=== PATIENT | female | born 1955 | race Caucasian/White ===

== ENCOUNTER 2016-12-10 16:59 | Emergency (ER) | payer SELFPAY ==
[~2016-12-10] VITALS: Ht 157.5 cm; Wt 63.5 kg
[2016-12-10] MEDS ORDERED: ATEN50TA (18:03)
[2016-12-10] MEDS ORDERED: LOVA20TA2 (18:03)
--- NOTE | 2016-12-10 19:30 | ED Syncope ---
General Chief Complaint: Dizziness/Syncope Stated Complaint: BLACKED OUT Nursing Triage Note: States was sitting in car at 1530 and felt everything go black, denies blacking out. States she felt her p[alpate at that time. States she "feels funny" States she forgot to take bp meds this am History of Present Illness Time Seen by Provider: 19:15 Initial Comments Initial evaluation for near syncopal event. 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 She has had no further vision changes, no other neurological changes, denies headache or chest pain. She denies paresthesias in upper or lower extremities. He reports eating breakfast and lunch today. No changes in her appetite. She is uncertain if she took her atenolol this morning for her blood pressure. She does report yelling with some stressful events last evening, but she slept without problems. Timing/Prior Episodes: No Prior History Symptoms Prior to Episode: None Precipitating Factors: Emotional Stress Loss of Consciousness: No Loss of Consciousness Current Symptoms: Back to Normal Allergies and Home Medications Allergies Coded Allergies: No Known Drug Allergies (Unverified , 12/10/16) Home Medications Atenolol 50 Mg Tablet #30 (Reported) Lovastatin 20 Mg Tablet #30 (Reported) Constitutional: no symptoms reported see HPI EENTM: no symptoms reported see HPI Respiratory: no symptoms reported see HPI Cardiovascular: no symptoms reported see HPI Gastrointestinal: no symptoms reported see HPI Genitourinary: no symptoms reported see HPI Musculoskeletal: no symptoms reported see HPI Skin: no symptoms reported see HPI Psychiatric/Neurological: See HPI Anxiety (offered treatment for anxiety, patient declined.) All Other Systems Reviewed Negative Unless Noted: Yes Past Rfczwrw-Jyidcv-Cniriu Hx Patient Social History Alcohol Use: Denies Use Recreational Drug Use: No Smoking Status: Current Everyday Smoker Type Used: Cigarettes 2nd Hand Smoke Exposure: Yes Recent Foreign Travel: No Contact w/Someone Who Travel: No Recent Infectious Disease Expo: No Recent Hopitalizations: No Immunizations Up To Date Tetanus Booster (TDap): Less than 5yrs Seasonal Allergies Seasonal Allergies: No Surgeries HX Surgeries: Yes Surgeries: Section Respiratory Hx Respiratory Disorders: No Cardiovascular Hx Cardiac Disorders: Yes Cardiac Disorders: Hypertension, Palpitations Neurological Hx Neurological Disorders: No Reproductive System Hx Reproductive Disorders: No Genitourinary Hx Genitourinary Disorders: No Gastrointestinal Hx Gastrointestinal Disorders: No Musculoskeletal Hx Musculoskeletal Disorders: No Endocrine Hx Endocrine Disorders: No (borderline thyroid- no meds) HEENT HX ENT Disorders: No Cancer Hx Cancer: No Psychosocial Hx Psychiatric Problems: No Integumentary HX Skin/Integumentary Disorder: No Blood Transfusions Hx Blood Disorders: No Reviewed Nursing Assessment Reviewed/Agree w Nursing PMH: Yes Physical Exam Vital Signs Vital Sign - Last 12Hours 12/10/16 12/10/16 17:57 20:18 Temp 98.3 Pulse 109 Resp 18 B/P 175/88 Pulse Ox 100 O2 Delivery Room Air Capillary Refill : Less Than 3 Seconds General Appearance: No Apparent Distress WD/WN HEENT: PERRL/EOMI TMs Normal Normal ENT Inspection Pharynx Normal Neck: Full Range of Motion Normal Inspection Non Tender SuppleNo Thyromegaly Cardiovascular: Regular Rate, Rhythm No Murmur Normal Peripheral Pulses Respiratory: Chest Non Tender Lungs Clear Gastrointestinal: Normal Bowel Sounds Non Tender Soft Back: Normal Inspection No CVA Tenderness No Vertebral Tenderness Extremities: Normal Capillary Refill Normal Inspection Normal Range of Motion Non Tender No Calf Tenderness No Pedal Edema Neurologic/Psychiatric: Alert Oriented x3 No Motor/Sensory Deficits Normal 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 Norm as Tested Cranial Nerves: Normal Hearing, Normal Speech, PERRL Coordination/Gait: Normal Finger to Nose, Normal Gait, Negative Romberg's Sign Motor/Sensory: No Motor Deficit, No Sensory Deficit, No Pronator Drift, Negative Babinski's Sign Skin: Normal Color Warm/Dry Lymphatic: No Adenopathy Progress/Results/Core Measures Results/Orders Lab Results Laboratory Tests Test 12/10/16 19:10 12/10/16 19:30 Range/Units Urine Bacteria FEW H /HPF Urine Bilirubin NEGATIVE NEGATIVE Urine Casts NONE /LPF Urine Clarity SLIGHTLY CLOUDY Urine Color YELLOW Urine Crystals NONE /LPF Urine Culture Indicated NO Urine Glucose (UA) NEGATIVE NEGATIVE Urine Ketones NEGATIVE NEGATIVE Urine Leukocyte Esterase 1+ H NEGATIVE Urine Mucus SMALL H /LPF Urine Nitrite NEGATIVE NEGATIVE Urine Protein NEGATIVE NEGATIVE Urine RBC RARE /HPF Urine RBC (Auto) 2+ H NEGATIVE Urine Renal Epithelial Cells NONE /HPF Urine Specific [place] 1.020 1.016-1.022 Urine Squamous Epithelial Cells >50 H /HPF Urine Urobilinogen NORMAL NORMAL MG/DL Urine WBC 2-5 /HPF Urine pH 6 5-9 Alanine Aminotransferase (ALT/SGPT) 15 0-55 U/L Albumin 4.2 3.2-4.5 G/DL Alkaline Phosphatase 69 40-136 U/L Anion Gap 11 5-14 MMOL/L Aspartate Amino Transf (AST/SGOT) 20 5-34 U/L BUN/Creatinine Ratio 17 Basophils # (Auto) 0.0 0.0-0.1 10^3/uL Basophils (%) (Auto) 0 0-10 % Blood Urea Nitrogen 14 7-18 MG/DL Calcium Level 9.2 8.5-10.1 MG/DL Carbon Dioxide Level 22 21-32 MMOL/L Chloride Level 108 H 98-107 MMOL/L Creatinine 0.84 0.60-1.30 MG/DL Eosinophils # (Auto) 0.1 0.0-0.3 10^3/uL Eosinophils (%) (Auto) 1 0-10 % Estimat Glomerular Filtration Rate > 60 Free Thyroxine 0.86 0.70-1.48 NG/DL Glucose Level 98 70-105 MG/DL Hematocrit 40 35-52 % Hemoglobin 13.5 11.5-16.0 G/DL Lymphocytes # (Auto) 1.9 1.0-4.0 X 10^3 Lymphocytes (%) (Auto) 18 12-44 % Mean Corpuscular Hemoglobin 30 25-34 PG Mean Corpuscular Hemoglobin Concent 33 32-36 G/DL Mean Corpuscular Volume 89 80-99 FL Mean Platelet Volume 10.8 H 7.4-10.4 FL Monocytes # (Auto) 0.7 0.0-1.0 X 10^3 Monocytes (%) (Auto) 7 0-12 % Neutrophils # (Auto) 7.7 1.8-7.8 X 10^3 Neutrophils (%) (Auto) 74 42-75 % Platelet Count 239 130-400 10^3/uL Potassium Level 3.8 3.6-5.0 MMOL/L Red Blood Count 4.53 4.35-5.85 10^6/uL Red Cell Distribution Width 13.3 10.0-14.5 % Sodium Level 141 135-145 MMOL/L Thyroid Stimulating Hormone (TSH) 4.87 0.35-4.94 UIU/ML Total Bilirubin 0.2 0.1-1.0 MG/DL Total Protein 7.1 6.4-8.2 G/DL White Blood Count 10.4 4.3-11.0 10^3/uL My Orders Orders-NADIA FOX Cbc With Automated Diff (12/10/16 19:23) Comprehensive Metabolic Panel (12/10/16 19:23) Ua Culture If Indicated (12/10/16 19:23) Saline Lock/Iv-Start (12/10/16 19:23) Thyroid Stimulating Hormone (12/10/16 20:38) Free T4 (Free Thyroxine) (12/10/16 20:38) Ekg Tracing (12/10/16 20:54) Vital Signs/I&O Vital Sign - Last 12Hours 12/10/16 12/10/16 12/10/16 17:57 20:18 20:50 Temp 98.3 98.3 98.3 Pulse 109 74 76 Resp 18 18 20 B/P 175/88 144/82 Pulse Ox 100 96 98 O2 Delivery Room Air Blood Pressure Mean: 117 Progress Note : Time: 19:15 Progress Note Initial evaluation completed. Recommended EKG, and lab workup. 2029 EKG and labs all essentially normal. Patient reports less anxiety. Taking by mouth fluids. We also checked her thyroid, as she has been told in the past that she was borderline hyperthyroid. Both her TSH and T4 were normal. 0 blood pressure 140s/80s. Discussed discharge plans. He verbalized understanding follow-up with Dr. Shaw. She has not seen an spinner iron for several years, will schedule an appointment. ECG Initial ECG Impression Date: Dec 10, 2016 Initial ECG Impression Time: 19:16 Initial ECG Rate: 101 Initial ECG Rhythm: S.Tach Initial ECG Intervals: Normal Initial ECG Intervals PA 124; QRSD 82; QT 352, QTc 457 Hamilton P 64; QRS 13; T 51 Initial ECG Impression: Normal Initial ECG Comparisson: No Previous ECG Available Comment Reviewed with Dr. Early, agreed with interpretation. Departure Impression Impression: Primary Impression: Syncope, near Disposition: 01 HOME, SELF-CARE Condition: Improved Departure-Patient Inst. Decision time for Depature: 20:30 Referrals: ANTONI SHAW MD (PCP/Family) Primary Care Physician Patient Instructions: Syncope (Fainting) (DC) Add. Discharge Instructions: All discharge instructions reviewed with patient and/or family. Voiced understanding. Follow-up with Dr. Shaw next week. Take blood pressure medicine daily as prescribed Increase fluid intake. Return to emergency room for any changes in neurological status, headache vision changes or new symptoms. Copy Copies To 1: ANTONI SHAW MD, AMY ARNP Dec 10, 2016 19:30
[2016-12-10 19:39] LABS: BASOPHILS % (AUTO) 0 % (0-10); EOSINOPHILS # (AUTO) 0.1 10^3/uL (0.0-0.3); EOSINOPHILS % (AUTO) 1 % (0-10); LYMPHOCYTES # (AUTO) 1.9 X 10^3 (1.0-4.0); LYMPHOCYTES % (AUTO) 18 % (12-44); MEAN CORPUSCULAR HEMOGLOBIN 30 PG (25-34); MEAN CORPUSCULAR HGB CONC 33 G/DL (32-36); MEAN CORPUSCULAR VOLUME 89 FL (80-99); MEAN PLATELET VOLUME 10.8 FL (7.4-10.4); MONOCYTES # (AUTO) 0.7 X 10^3 (0.0-1.0); MONOCYTES % (AUTO) 7 % (0-12); NEUTROPHILS # (AUTO) 7.7 X 10^3 (1.8-7.8); NEUTROPHILS % (AUTO) 74 % (42-75); PLATELET COUNT 239 10^3/uL (130-400); RED BLOOD COUNT 4.53 10^6/uL (4.35-5.85); RED CELL DISTRIBUTION WIDTH 13.3 % (10.0-14.5); WHITE BLOOD COUNT 10.4 10^3/uL (4.3-11.0)
[2016-12-10 20:00] LABS: ALANINE AMINOTRANSFERASE 15 U/L (0-55); ALBUMIN 4.2 G/DL (3.2-4.5); ANION GAP 11 MMOL/L (5-14); ASPARTATE AMINO TRANSFERASE 20 U/L (5-34); BILIRUBIN,TOTAL 0.2 MG/DL (0.1-1.0); BLOOD UREA NITROGEN 14 MG/DL (7-18); BUN/CREATININE RATIO 17; CALCIUM 9.2 MG/DL (8.5-10.1); CARBON DIOXIDE 22 MMOL/L (21-32); CHLORIDE 108 MMOL/L (98-107); CREATININE SERUM 0.84 MG/DL (0.60-1.30); GFR ESTIMATED > 60; GLUCOSE 98 MG/DL (70-105); POTASSIUM 3.8 MMOL/L (3.6-5.0); SODIUM 141 MMOL/L (135-145); TOTAL PROTEIN 7.1 G/DL (6.4-8.2)
[2016-12-10 20:10] LABS: BILIRUBIN,URINE NEGATIVE (NEGATIVE); KETONES,URINE NEGATIVE (NEGATIVE); LEUKOCYTE ESTERASE ,URINE 1+ (NEGATIVE); NITRITE,URINE NEGATIVE (NEGATIVE); PH,URINE 6 (5-9); PROTEIN,URINE NEGATIVE (NEGATIVE); UROBILINOGEN,URINE NORMAL (NORMAL)
[2016-12-10 20:12] LABS: SQUAMOUS EPITHELIAL CELL,UR >50 /HPF
[2016-12-10 20:18] VITALS: BP 144/82
[2016-12-10 20:50] VITALS: BP 140/84
[2016-12-10 21:39] LABS: THYROID STIMULATING HORMONE 4.87 UIU/ML (0.35-4.94)
== END 2016-12-10 20:50 | disposition home or self-care (01) ==
LOC: EDUNIT# 16:59 → ER 17:02
DX: R55 Syncope and collapse (principal); I10 Essential (primary) hypertension; F17.210 Nicotine dependence, cigarettes, uncomplicated; Z79.899 Other long term (current) drug therapy
CPT/HCPCS: 36415; 80053; 81000; 84439; 84443; 85025; 93005

== ENCOUNTER 2019-11-05 05:41 | Outpatient (CLI) | payer BC ==
[~2019-11-05] VITALS: Ht 157 cm; Wt 63.0 kg
[~2019-11-05 05:41] MED LIST: ATEN50TA; LOVA20TA2
[2019-11-05] MEDS ORDERED: AMLO10TA7 PO (10:54)
[2019-11-05] MEDS ORDERED: ATEN50TA PO (10:54)
[2019-11-05] MEDS ORDERED: LOVA20TA2 PO (10:54)
== END 2019-11-05 13:12 | disposition home or self-care (01) ==
LOC: PREOP 05:41
PROVIDERS: ATTEND Surgery
DX: Z01.818 Encounter for other preprocedural examination (principal)

== ENCOUNTER → 2019-12-19 | Outpatient (CLI) | payer BC ==
[~2019-12-19] MED LIST changes: +AMLO10TA7 PO; +ATEN50TA PO; +HOLD METFORMIN - RECEIVED CONTRAST 20 ML VIAL IV SCH; +IOHEXOL 350 MG/ML 100 ML (OMNIPAQUE 350) VIAL IV ONE; +LOVA20TA2 PO; +NS 100 ML (IVPB) BAG IV ONE
[2019-12-19 08:53] LABS: HEMOGLOBIN 14.5 G/DL (11.5-16.0); MEAN PLATELET VOLUME 10.7 FL (7.4-10.4); RED CELL DISTRIBUTION WIDTH 13.8 % (10.0-14.5); WHITE BLOOD COUNT 8.1 10^3/uL (4.3-11.0)
[2019-12-19 09:14] LABS: ALANINE AMINOTRANSFERASE 14 U/L (0-55); ALBUMIN 4.3 GM/DL (3.2-4.5); ALKALINE PHOSPHATASE 68 U/L (40-136); BILIRUBIN,TOTAL 0.3 MG/DL (0.1-1.0); BUN/CREATININE RATIO 14; CALCIUM 9.4 MG/DL (8.5-10.1); CARBON DIOXIDE 24 MMOL/L (21-32); CHLORIDE 107 MMOL/L (98-107); CREATININE SERUM 0.87 MG/DL (0.60-1.30); GFR ESTIMATED > 60; GLUCOSE 92 MG/DL (70-105); POTASSIUM 4.3 MMOL/L (3.6-5.0); SODIUM 141 MMOL/L (135-145); TOTAL PROTEIN 7.5 GM/DL (6.4-8.2)
--- NOTE | 2019-12-19 10:21 | Diagnostic Imaging Report ---
PROCEDURE: CT abdomen and pelvis with contrast. TECHNIQUE: Multiple contiguous axial images were obtained through the abdomen and pelvis after administration of intravenous contrast. Auto Exposure Controls were utilized during the CT exam to meet ALARA standards for radiation dose reduction. INDICATION: Intermittent left lower quadrant pain symptoms began in August. No priors for comparison. FINDINGS: No abdominal wall defect, hernia or fluid collection. There is no bowel, biliary or urinary tract obstruction. Liver, gallbladder, bile ducts, spleen, adrenals and pancreas unremarkable. The unobstructed kidneys nonfocal and nonacute. The atherosclerotic aortoiliac vessels are patent and nonaneurysmal. There were no findings of end organ ischemia. There is no evidence for diverticulitis. The air-containing appendix well visualized and normal. There is no ascites, abscess, hematoma or acute fluid collection. Uterus, adnexa and urinary bladder unremarkable. No focal inflammatory process. Small hiatal hernia noted. IMPRESSION: Unremarkable abdominal pelvic CT. In particular, no acute finding or explanation to the left lower quadrant pain. Dictated by: Dictated on workstation # [id number]
== END ==
LOC: RAD 08:36
PROVIDERS: ATTEND Surgery
DX: R10.32 Left lower quadrant pain (principal)
CPT/HCPCS: 36415; 74177; 80053; 85027

== ENCOUNTER 2020-05-20 09:58 | Emergency (ER) | payer BC ==
[~2020-05-20 09:58] MED LIST changes: -HOLD METFORMIN - RECEIVED CONTRAST 20 ML VIAL IV SCH; -IOHEXOL 350 MG/ML 100 ML (OMNIPAQUE 350) VIAL IV ONE; -NS 100 ML (IVPB) BAG IV ONE
--- NOTE | 2020-05-20 10:00 | NUR ---
WENT TO GET PT TO TAKE TO COVID ED. PT HAVING CHEST PAIN. PT STATES WILL NOT GO OVER TO COVID AREA, EXPLAINED TO PT THAT ALL CHEST PAINS ARE CONSIDERED PUI. PT WOULD NOT LET THIS RN EXPLAIN CARE OF CHEST PAIN. PT STAYED 20+ FT AWAY FROM RN DURING ENCOUNTER. WHEN WALKING AWAY PT STATES IF I AM HAVING A HEART ATTACK I WILL BRIAN THIS PLACE. PT ANGRY. RN ATTEMPTED TO EDUCATED PT AGAIN. PT WALKED OUT TO VEHICLE W SPOUSE AND LEFT
--- OUTSIDE RECORDS SUMMARY | 2020-05-20 10:46 | XMS REPORT ---
Author Author [address]. 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 Address [address] [address] Care Team Providers Care Chemical Analyst Name Role Phone ANTONI SHAW Unavailable ANTONI SHAW Unavailable ANTONI SHAW Unavailable ANTONI SHAW Unavailable ANTONI SHAW Unavailable ANTONI SHAW Unavailable JEFFERSON BERRY MD Unavailable Unavailable NADIA FOX Unavailable Unavailable ANTONI SHAW Unavailable Unavailable FLORESITA CUNNINGHAM DO Unavailable Unavailable ANTONI SHAW PCP JEFFERSON BERRY MD Unavailable Unavailable Unavailable Unavailable Unavailable Unavailable Unavailable Unavailable Unavailable Unavailable Allergies The data below is from unstructured sources Unknown AllergiesNo known allergies.No known allergies. No Known Allergies No Known Allergies No Information No Information No Known Allergies No Known Allergies No Known Allergies No Known AllergiesNo known allergies.No known allergies.No known allergies.No known allergies. Encounters Encounter Date Encounter Type Encounter Diagnosis Care Provider Facility Start: Emergency department JEFFERSON BERYR MD V Via 05-20-2020 patient visit [facility] Start: Patient encounter FLORESITA CUNNINGHAM DO [facility] Via 12-19-2019 procedure [facility] Start: Admission to same day ANTONI Hernandez on Via 11-12-2019 surgery center Work Phone: [place] [phone] End: 11-12-2019 Start: Patient encounter FLORESITA CUNNINGHAM DO [facility]2019 procedure [facility] ([id number]) End: 11-12-2019 Start: Patient encounter ANTONI Daniels V ia 11-05-2019 procedure Work Phone: [place] [phone] End: 11-05-2019 Start: Patient encounter FLORESITA CUNNINGHAM [facility] Via [facility] 11-05-2019 procedure [facility] ([id number]) End: 11-05-2019 Start: Patient encounter NA NA [facility]2019 procedure [facility] ([id number]) Start: Patient encounter ANTONI SHAW [facility] 06-17-2019 procedure [facility] ([id number]) Start: Patient encounter ANTONI SHAW [facility] 11-27-2018 procedure [facility] ([id number]) Start: [facility] Essential (primary) ANTONI AUGUSTINE RTER [facility] 06-25-2018 hypertension Start: [facility] Essential (primary) ANTONI PEÑAMary RTER [facility] 05-29-2018 hypertension Start: Patient encounter NA NA Not [facility] ([id number]) 05-29-2018 procedure Start: Patient encounter 11-07-2017 procedure Start: Patient encounter NADIA FOX Not [facility] ([id number]) 12-10-2016 procedure Encounter for other FLORESITA CUNNINGHAM [facility] Via [facility] examination ([id number]) Medical Equipment The data below is from unstructured sourcesNo Medical Equipment Information availableNo Medical Equipment Information availableNo Medical Equipment Information available Goals Date Patient Goal Desired Activity/St ate Immunizations The data below is from unstructured sources Immunization Event Date Not Given Reason Dose Number Safety Tech Lot Number Vaccine Information Statement (VIS) Deta il Interventions No Information Medications Medication Drug Dates Sig Sig (Original) Class(es) (Normalized) amLODIPine 5 mg oral Dihydropyr Start: take 1 tablet Aml odipine Besylate 5 mg Orally Once a tablet idine 05-29-2018 by mouth once day 1 tablet 24h Apr, 30 day(s) (3 sources) Calcium daily Active Channel Yovany Amlodipine Besylate Active 10 ORAL Daily Payers Date Payer Normalized Payer [id number] Plan of Treatment Date Care Activity Detail Author Patient Education [place] [facility] ([id number]) Problems Active Problems Problem Problem Date Last Documented Episodic/Chr Provider Classificati Recorded Date onic on Anxiety Anxiety disorder, unspecified Chronic FLORESITA CUNNINGHAM disorders DO (3 sources) Diverticulos Diverticulosis of large intestine Chronic FLORESITA CUNNINGHAM is and without perforation or abscess DO diverticulit without bleeding is (3 sources) Past or Other Problems Problem Problem Date Last Documented Episodic/Chr Provider Classificati Recorded Date onic on Abdominal Left lower quadrant pain Episodic SENG TT CUNNINGHAM pain DO (2 sources) Other Other group home (current) drug Episodic NADIA FOX aftercare therapy (4 sources) Other and Benign neoplasm of sigmoid colon Episodic FLORESITA CUNNINGHAM unspecified DO benign neoplasm (3 sources) Other and Benign neoplasm of transverse colon Episodic FLORESITA CUNNINGHAM unspecified DO benign neoplasm (3 sources) Other and Polyp of colon Episodic FLORESITA CUNNINGHAM unspecified DO benign neoplasm (3 sources) Residual Family history of ischemic heart Episodic FLORESITA CUNNINGHAM codes; disease and other diseases of the D O unclassified circulatory system (3 sources) Residual Family history of malignant Episodic FLORESITA CUNNINGHAM codes; neoplasm, unspecified DO unclassified (3 sources) Procedures The data below is from unstructured sources Procedure Status Date Provider(s) Tracing only of electrocardiogram Active 12/10/16 NADIA FOXP No procedure information available. Results Test Name Value Interpreta Reference Facilit Date tion Range y Time not yet categorized on 2019-10-04 BLO 1+ Invalid Communi Interpreta ty tion Code [facility] (10926) KET 09/18~clear~yellow~none~neg~neg~neg Invalid Communi Interpreta ty tion Code [facility] (31170) RYAN neg~1+ Invalid Communi Interpreta ty tion Code [facility] (16012) Lot # [id number] Invalid Communi Interpreta ty tion Code [facility] (32989) SG 1.020 Invalid Communi Interpreta ty tion Code [facility] (55469) URO .2 Invalid Communi Interpreta ty tion Code [facility] (82640) laboratory on 2019-10-04 Bacteria identified SEE NOTE Invalid Communi Cx Nom (U) Interpreta ty tion Code [facility] (76309) pH (Bld) 6.0 [pH] Invalid Communi Interpreta ty tion Code [facility] (06311) Protein (U) Negative Invalid Communi [Mass/Vol] Interpreta ty [facility] (00054) laboratory on 2017-11-07 Albumin [Mass/Vol] 4.4 g/dL Normal 3.6-5.1 Not g/dL [facility] (57529) Albumin/Globulin 1.6 {ratio} Normal 1.0-2.5 Not [Mass ratio] (calc) [facility] (36075) ALP [Catalytic 62 U/L Normal 33-130 U/L Not activity/Vol] [facility] (08888) ALT [Catalytic 13 U/L Normal 6-29 U/L Not activity/Vol] [facility] (98279) AST [Catalytic 18 U/L Normal 10-35 U/L Not activity/Vol] [facility] (27726) Bilirubin [Mass/Vol] 0.4 mg/dL Normal 0.2-1.2 Not mg/dL [facility] (32248) Calcium [Mass/Vol] 9.8 mg/dL Normal 8.6-10.4 Not mg/dL [facility] (31655) Chloride [Moles/Vol] 106 mmol/L Normal 98-110 Not mmol/L [facility] (49263) Cholesterol 185 mg/dL Normal <200 mg/dL [Mass/Vol] Cholesterol in HDL 63 mg/dL Normal >50 mg/dL [Mass/Vol] Cholesterol in LDL 94 mg/dL Normal mg/dL [Mass/Vol] (calc) Cholesterol non HDL 122 mg/dL Normal <130 mg/dL [Mass/Vol] (calc) Cholesterol.total/Ch 2.9 {ratio} Normal <5.0 olesterol in HDL (calc) [Mass ratio] CO2 [Moles/Vol] 28 mmol/L Normal 20-31 Not mmol/L [facility] (77320) Creatinine 0.80 mg/dL Normal 0.50-0.99 Not [Mass/Vol] mg/dL [facility] (63683) GFR/1.73 sq 93 mL/min/{1.73_m2} Normal > OR = 60 Not M.predicted among mL/min/1.7 Avail[facility] blacks MDRD 3m2 le (S/P/Bld) [Vol (00837) rate/Area] GFR/1.73 sq 80 mL/min/{1.73_m2} Normal > OR = 60 Not M.predicted MDRD mL/min/1.7 Availab (S/P/Bld) [Vol 3m2 le rate/Area] (63956) Globulin (S) 2.7 g/dL Normal 1.9-3.7 Not [Mass/Vol] g/dL Avail[facility] (calc) le (56206) Glucose [Mass/Vol] 93 mg/dL Normal 65-99 Not mg/dL [facility] (33319) Potassium 4.7 mmol/L Normal 3.5-5.3 Not [Moles/Vol] mmol/L [facility] (87675) Protein [Mass/Vol] 7.1 g/dL Normal 6.1-8.1 Not g/dL [facility] (13477) Sodium [Moles/Vol] 140 mmol/L Normal 135-146 Not mmol/L [facility] (04008) Triglyceride 190 mg/dL High <150 mg/dL [Mass/Vol] Urea nitrogen 16 mg/dL Normal 7-25 mg/dL Not [Mass/Vol] [facility] (81883) Urea NOT APPLICABLE Invalid 6-22 Not nitrogen/Creatinine Interpreta (calc) Availab [Mass ratio] tion Code le (96933) laboratory on 2016-12-15 Cholesterol 179 mg/dL Invalid 100-199 Not 2 [Mass/Vol] Interpreta mg/dL Availab 017 tion Code le 09:08-0 (87190) 500 Cholesterol in HDL 59 mg/dL Invalid >39 mg/dL Not 02 6-2 [Mass/Vol] Interpreta Availab 017 tion Code le 09:08-0 (56451) 500 Cholesterol in LDL 96 mg/dL Invalid 0-99 mg/dL Not 2 [Mass/Vol] Interpreta Availab 017 tion Code le 09:08-0 (60649) 500 Cholesterol in VLDL 24 mg/dL Invalid 5-40 mg/dL Not -2 [Mass/Vol] Interpreta Availab 017 tion Code le 09:08-0 (61495) 500 Triglyceride 120 mg/dL Invalid 0-149 Not 2 [Mass/Vol] Interpreta mg/dL Availab 017 tion Code le 09:08-0 (36000) 500 Social History Date Type Detail Facility Start: Tobacco smoking status NHIS Smokes tobacco stacie ly [place] [facility] 11-05-2019 (finding) [facility] ([id number]) Start: Denies Use [place] [facility] 11-05-2019 [facility] ([id number]) Start: Current Everyday Smoker [place] [facility] 11-05-2019 [facility] ([id number]) Start: Cigarettes [place] [facility] 11-05-2019 [facility] (36654) Start: No [place] [facility] 11-05-2019 [facility] ([id number]) Start: Sex Assigned At Female [facility] 1955 [facility] ([id number]) Vital Signs Date Time Vital Sign Value Performing Clinician Facil it 05-29-2018 Body height 157.48 cm [facility] 12:40-0400 Other Phone: [facility] [place] ([id number]) 05-29-2018 Body mass index 26.37 kg/m2 [facility] 12:40-0400 (BMI) [Ratio] Other Phone: [facility] [place] ([id number]) 05-29-2018 Body temperature 98.9 [degF] [facility] 12:40-0400 Other Phone: [facility] [place] ([id number]) 05-29-2018 Body weight 65.41 kg [facility] 12:40-0400 Other Phone: [facility] [place] ([id number]) Functional Status The data below is from unstructured sources Query Response Date Williams rded Patient Orientation Person Place Time Situation Normal For Age December 10, 2016 7:20pm Comprehension Ability Understands Co ncepts December 10, 2016 7:20pm No Functional Status information available Mental Status The data below is from unstructured sourcesNo Mental Status Information AvailableNo Mental Status Information AvailableNo Mental Status Information Available Hospital Discharge instructions 2020-06-03 Note Date & Note Facility Type 06-03-2020 Additional Instructions [place] [facility] Patient Instructions [facility] Discharge Physician Instructions ([id number]) instructions Plan of Care/Instructions/F U: 2 weeks cunningham Activity as Tolerated: Yes Discharge Diet: Regular Diet (high fibe r) Care Plan Patient Instructions:: 2 weeks cunningham Evaluation note Note Date & Note Facility Type Evaluation No Assessments Information Available [facility] Via note [facility] ([id number]) Advance Directives Directive Response Recor ded Date/Time Advance Directives No 5:57pm Resuscitation Status Full Code 12/10/16 5:57pm Advance Directive Response Recorded Date/Time Advance Directives No Renzo nudunreith 2019 10:52am Health Care Power of Security Systems Sales Representative No November 05, 2019 10:52am Resuscitation Status Full Code November 05, 2019 10:52am Advance Directive Response Recorded Date/Time Advance Directives No Renzo nuary 2019 7:53am Health Care Power of Security Systems Sales Representative No November 12, 2019 7:53am Organ Donor Yes November 12, 2019 7:53am Resuscitation Status Full Code November 12, 2019 7:53am Discharge Instructions No hospital discharge instructions. Additional Source Comments This clinical document has been generated using [employer] software that has been certified by the Office of the National Coordinator for Health Information Technology (ONC 15.99.04.3023.Diam.31.00.0.297262) and the National Committee for Restaurant Operations Manager (NCQA, as an eMeasure certified technology). FOR RECORDS PERTAINING TO PATIENTS WHO ARE OR HAVE BEEN ENROLLED IN A CHEMICAL D EPENDENCY/SUBSTANCE ABUSE PROGRAM, SOME INFORMATION MAY BE OMITTED. This clinica l summary was aggregated from multiple sources. Caution should be exercised in using it in the provision of clinical care. This summary normalizes information from multiple sources, and as a consequence, information in this document may ma terially change the coding, format and clinical context of patient data. In hay tion, data may be omitted in some cases. CLINICAL DECISIONS SHOULD BE BASED ON T HE PRIMARY CLINICAL RECORDS. [employer] provides no warranty or guara ntee of the accuracy or completeness of information in this document.The followi ng information is based on time limited clinical information UNRECOGNIZED CONTENT PROVIDED BELOW FOR UNRECOGNIZED SECTION REASON FOR VISIT Blood Pressure concern Pt states that since yesterday her b/p was elevated JNapi CHRISTIE soto
--- OUTSIDE RECORDS SUMMARY | 2020-05-20 10:46 | XMS REPORT | Continuity of Care Document ---
Demographics Preferred Language Unknown Marital Status Unknown Evangelical Affiliation Unknown Race Unknown Ethnic Group Unknown Author Organization Unknown Address Unknown Phone Unavailable Allergies There is no data. Medications There is no data. Problems There is no data. Procedures There is no data. Results Test Result Range Lipid Panel - 12/14/16 08:27 Cholesterol, Total 179 mg/dL 100-199 Triglycerides 120 mg/dL 0-149 HDL Cholesterol 59 mg/dL >39 VLDL Cholesterol Kenji 24 mg/dL 5-40 LDL Cholesterol Calc 96 mg/dL 0-99 LIPID PANEL - 11/07/17 09:44 CHOLESTEROL, TOTAL 185 mg/dL <200 HDL CHOLESTEROL 63 mg/dL >50 TRIGLYCERIDES 190 mg/dL <150 LDL-CHOLESTEROL 94 mg/dL (calc) NRG CHOL/HDLC RATIO 2.9 (calc) <5.0 NON HDL CHOLESTEROL 122 mg/dL (calc) <13 0 CULTURE, URINE - 10/04/19 11:52 CULTURE, URINE, ROUTINE SEE NOTE NRG Encounters ACCT No. Visit Date/Time Discharge Status Pt. Type Provider Facility Loc./Unit Complaint [id number] 12/15/2016 08:40:00 Document Registration [id number] 06/17/2019 11:00:00 06/17/2019 23:59:5 9 CLS Out[facility] [id number] 10/04/2019 11:40:00 Document Registration [id number] 11/07/2017 09:20:00 Document Registration
== END 2020-05-20 10:00 | disposition left against medical advice (07) ==
LOC: EDUNIT# 09:58 → ER 09:59
DX: R07.9 Chest pain, unspecified (principal)

== ENCOUNTER 2020-05-20 10:24 | Emergency (ER) | payer BC ==
[~2020-05-20] VITALS: Ht 157 cm; Wt 63.0 kg
[2020-05-20] MEDS ORDERED: ASPIRIN 81 MG CHEW (CHILDREN'S ASA) PO ONE (11:00)
[2020-05-20 11:07] LABS: BASOPHILS # (AUTO) 0.1 10^3/uL (0.0-0.1); BASOPHILS % (AUTO) 1 % (0-10); EOSINOPHILS # (AUTO) 0.4 10^3/uL (0.0-0.3); EOSINOPHILS % (AUTO) 5 % (0-10); HEMATOCRIT 42 % (35-52); HEMOGLOBIN 14.1 G/DL (11.5-16.0); LYMPHOCYTES # (AUTO) 2.1 X 10^3 (1.0-4.0); LYMPHOCYTES % (AUTO) 26 % (12-44); MEAN CORPUSCULAR HEMOGLOBIN 31 PG (25-34); MEAN CORPUSCULAR HGB CONC 34 G/DL (32-36); MEAN CORPUSCULAR VOLUME 91 FL (80-99); MEAN PLATELET VOLUME 10.9 FL (7.4-10.4); MONOCYTES # (AUTO) 0.6 X 10^3 (0.0-1.0); MONOCYTES % (AUTO) 8 % (0-12); NEUTROPHILS # (AUTO) 4.8 X 10^3 (1.8-7.8); NEUTROPHILS % (AUTO) 60 % (42-75); PLATELET COUNT 263 10^3/uL (130-400); RED CELL DISTRIBUTION WIDTH 13.6 % (10.0-14.5); WHITE BLOOD COUNT 7.9 10^3/uL (4.3-11.0)
--- NOTE | 2020-05-20 11:15 | ED Chest Pain ---
General Chief Complaint: Chest Pain Stated Complaint: CHEST PAIN Source: patient Exam Limitations: no limitations History of Present Illness Date Seen by Provider: May 20, 2020 Time Seen by Provider: 10:22 Initial Comments Here with report of chest pain that she states has been intermittent over the last month but worse this morning. She states she got up and rolled over and felt pain in her back on the left side and that radiated to her chest. She has persistently intermittent chest pain to day that she describes as an ache. Denies nausea, vomiting, sweating or breathing problems. She has not had no cardiac workup. Does smoke but denies alcohol or drugs. Does have significant family history with mother who had heart attack and of a stroke and multiple family members on her mother's side that have had heart attacks or strokes. Patient does have high blood pressure and anxiety. She presented earlier for the chest pain but left due to concerns for coronavirus. Ultimately she returned after further consideration and encouragement from family and primary care office. Patient reassured about precautions. Patient stays at home and has not left the house since December. She is very concerned and cautious about COVID-19. 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 No symptoms in him or her. She denies sore throat, runny nose, cough, breathing problems or other concerns other than the chest pain. Timing/Duration: 4-6 hours, intermittent Severity/Quality: moderate, aching, pressure Location: central, back Radiation: back Activities at Onset: none Prior CP/Workup: no prior cardiac workup Modifying Factors: improves with rest ASA po ASPHALT DAUBER: Yes (81 mg) NTG SL ASPHALT DAUBER: No Associated Symptoms: No abdominal pain; back pain; No diaphoresis, No dizziness, No fever/chills, No nausea/vomiting, No shortness of breath, No weakness Allergies and Home Medications Allergies Coded Allergies: No Known Drug Allergies (Unverified , 11/05/19) Home Medications Amlodipine Besylate 10 Mg Tablet, 10 MG PO DAILY, (Reported) Atenolol 50 Mg Tablet, 50 MG PO DAILY, (Reported) Lovastatin 20 Mg Tablet, 20 MG PO HS, (Reported) Patient Home Medication List Home Medication List Reviewed: Yes Review of Systems Review of Systems Constitutional: see HPI; No chills, No fever EENTM: No Symptoms Reported, See HPI Respiratory: No Symptoms Reported, See HPI Cardiovascular: Chest Pain, Edema, Lightheadedness Gastrointestinal: Denies Abdominal Pain, Denies Diarrhea, Denies Nausea, Denies Vomiting Genitourinary: No Symptoms Reported Musculoskeletal: back pain, muscle pain; No neck pain Skin: no symptoms reported Psychiatric/Neurological: No Symptoms Reported All Other Systems Reviewed Negative Unless Noted: Yes Past Hioxjqc-[place]-Mmwaod Hx Past Med/Social Hx: Reviewed Nursing Past Med/Soc Hx Patient Social History Alcohol Use: Denies Use Recreational Drug Use: No Smoking Status: Current Everyday Smoker Type Used: Cigarettes 2nd Hand Smoke Exposure: Yes Recent Hopitalizations: No Immunizations Up To Date Tetanus Booster (TDap): Less than 5yrs Seasonal Allergies Seasonal Allergies: No Past Medical History Surgeries: Yes Section Respiratory: No Cardiac: Yes High Cholesterol, Hypertension, Palpitations Neurological: No Reproductive Disorders: No Sexually Transmitted Disease: No HIV/AIDS: No Genitourinary: No Gastrointestinal: No Musculoskeletal: No Endocrine: Yes (borderline thyroid- no meds) HEENT: No (GLASSES) Loss of Vision: Denies Hearing Impairment: Denies Cancer: No Psychosocial: No Integumentary: No Blood Disorders: No Adverse Reaction/Blood Tranf: No (N/A) Family Medical History Reviewed Nursing Family Hx No Pertinent Family Hx Physical Exam Vital Signs Vital Signs - First Documented 05/20/20 05/20/20 10:30 11:29 Temp 37.2 Pulse 81 Resp 18 B/P (MAP) 144/87 (106) Pulse Ox 97 O2 Delivery Room Air Capillary Refill : Height, Weight, BMI Height: 5'2" Weight: 140lbs. oz. 63.180686hl; 25.55 BMI Method:Stated General Appearance: WD/WN, Anxious HEENT: PERRL/EOMI, Pharynx Normal Neck: Non Tender, Supple Respiratory: Lungs Clear, Normal Breath Sounds Cardiovascular: Regular Rate, Rhythm, No Murmur Gastrointestinal: Non Tender, Soft Extremity: Normal Range of Motion, Non Tender Neurologic/Psychiatric: Alert, Oriented x3 Skin: Normal Color, Warm/Dry Progress/Results/Core Measures Results/Orders Lab Results Laboratory Tests Test 05/20/20 10:35 05/20/20 12:35 Range/Units White Blood Count 7.9 4.3-11.0 10^3/uL Red Blood Count 4.62 4.35-5.85 10^6/uL Hemoglobin 14.1 11.5-16.0 G/DL Hematocrit 42 35-52 % Mean Corpuscular Volume 91 80-99 FL Mean Corpuscular Hemoglobin 31 25-34 PG Mean Corpuscular Hemoglobin Concent 34 32-36 G/DL Red Cell Distribution Width 13.6 10.0-14.5 % Platelet Count 263 130-400 10^3/uL Mean Platelet Volume 10.9 H 7.4-10.4 FL Neutrophils (%) (Auto) 60 42-75 % Lymphocytes (%) (Auto) 26 12-44 % Monocytes (%) (Auto) 8 0-12 % Eosinophils (%) (Auto) 5 0-10 % Basophils (%) (Auto) 1 0-10 % Neutrophils # (Auto) 4.8 1.8-7.8 X 10^3 Lymphocytes # (Auto) 2.1 1.0-4.0 X 10^3 Monocytes # (Auto) 0.6 0.0-1.0 X 10^3 Eosinophils # (Auto) 0.4 H 0.0-0.3 10^3/uL Basophils # (Auto) 0.1 0.0-0.1 10^3/uL Erythrocyte Sedimentation Rate 21 0-30 MM/HR Prothrombin Time 12.7 12.2-14.7 SEC INR Comment 0.9 0.8-1.4 Activated Partial Thromboplast Time 31 24-35 SEC D-Dimer <= 0.27 0.00-0.49 UG/ML Sodium Level 143 135-145 MMOL/L Potassium Level 4.2 3.6-5.0 MMOL/L Chloride Level 110 H 98-107 MMOL/L Carbon Dioxide Level 23 21-32 MMOL/L Anion Gap 10 5-14 MMOL/L Blood Urea Nitrogen 9 7-18 MG/DL Creatinine 0.84 0.60-1.30 MG/DL Estimat Glomerular Filtration Rate > 60 BUN/Creatinine Ratio 11 Glucose Level 94 70-105 MG/DL Calcium Level 9.1 8.5-10.1 MG/DL Corrected Calcium 9.0 8.5-10.1 MG/DL Magnesium Level 2.2 1.6-2.4 MG/DL Total Bilirubin 0.3 0.1-1.0 MG/DL Aspartate Amino Transf (AST/SGOT) 19 5-34 U/L Alanine Aminotransferase (ALT/SGPT) 13 0-55 U/L Alkaline Phosphatase 64 40-136 U/L Lactate Dehydrogenase 225 H 125-220 U/L Myoglobin 35.1 10.0-92.0 NG/ML Troponin I < 0.028 < 0.028 <0.028 NG/ML C-Reactive Protein High Sensitivity 0.30 0.00-0.50 MG/DL Total Protein 7.2 6.4-8.2 GM/DL Albumin 4.1 3.2-4.5 GM/DL Procalcitonin 0.01 <0.10 NG/ML My Orders Orders - JEFFERSON BERRY MD Cbc With Automated Diff (05/20/20 10:47) Magnesium (05/20/20 10:47) Chest 1 View, Ap/Pa Only (05/20/20 10:47) Ekg Tracing (05/20/20 10:47) Comprehensive Metabolic Panel (05/20/20 10:47) Myoglobin Serum (05/20/20 10:47) Protime With Inr (05/20/20 10:47) Partial Thromboplastin Time (05/20/20 10:47) O2 (05/20/20 10:47) Monitor-Rhythm Ecg Trace Only (05/20/20 10:47) Lipid Panel (05/21/20 06:00) Ed Iv/Invasive Line Start (05/20/20 10:47) Troponin I (05/20/20 10:47) Aspirin Chewable Tablet (Baby Aspirin Ch (05/20/20 11:00) Procalcitonin (Pct) (05/20/20 10:47) Hs C Reactive Protein (05/20/20 10:47) Erythrocyte Sedimentation Rate (05/20/20 10:47) LDH (05/20/20 10:47) Fibrin Degradation Products (05/20/20 10:35) Troponin I (05/20/20 12:25) Medications Given in ED Current Medications Medications Dose Ordered Sig/Terri Route Start Time Stop Time Status Last Admin Dose Admin Aspirin 243 mg ONCE ONCE PO 05/20/20 11:00 05/20/20 11:01 DC 05/20/20 11:20 243 MG Vital Signs/I&O 05/20/20 05/20/20 10:30 11:29 Temp 37.2 Pulse 81 Resp 18 B/P (MAP) 144/87 (106) Pulse Ox 97 O2 Delivery Room Air Progress Progress Note : Progress Note Seen and evaluated. Patient reassured. IV, labs, EKG and chest x-ray ordered. ASA 243 mg by mouth ordered. This will complete aspirin dosing. Pain-free currently so no nitroglycerin. Does not appear to be even moderate risk for COVID-19 given her current circumstances and report. We will check labs and chest x-ray and reevaluate for screening. Monitor patient. 1235: Remains pain free. We will repeat troponin his initial set was negative. Monitor patient. 1340: Repeat troponin negative. I have discussed the case with Dr. Chin and he can see her within the week. Patient to call office for appointment. Discharged home with return precautions. Patient verbalize understanding instructions and agreement with plan. Initial ECG Impression Date: May 20, 2020 Initial ECG Impression Time: 10:28 Initial ECG Rate: 72 Initial ECG Rhythm: Normal Sinus Initial ECG Impression: Normal Initial ECG Comparisson: Unchanged Comment Sinus rhythm with left atrial abnormality. Normal axis. No evidence of ST elevat ion MA. Very similar to previous on 12/10/16. Interpreted by me. Diagnostic Imaging Diagonstic Imaging: Xray Plain Films/CT/US/NM/MRI: chest Comments [facility], [place] NAME: YUN MCGUIRE [facility] REC#: [id number] PT STATUS: REG ER : 1955 PHYSICIAN: JEFFERSON BERRY MD ADMIT DATE: 05/20/20/ER Draft Date of Exam:05/20/20 CHEST 1 VIEW, AP/PA ONLY Indication: Chest pain. Time of exam: 11:52 AM No prior studies are available for comparison. The heart size is normal. The pulmonary vascularity is unremarkable. The lungs are clear. No infiltrate, effusion or pneumothorax is detected. Impression: No acute cardiopulmonary process is detected. Dictated on workstation # [id number] Dict: 05/20/20 1210 Trans: 05/20/20 1210 CV [id number] Interpreted by: TEE FUNG MD Electronically signed by: Departure Impression Primary Impression: Chest pain Qualified Codes: R07.9 - Chest pain, unspecified Disposition: 01 HOME, SELF-CARE Condition: Improved Departure-Patient Inst. Decision time for Depature: 13:44 Referrals: REZA CHIN MD FACP [facility] ANTONI SHAW MD (PCP/Family) Primary Care Physician Patient Instructions: Chest Pain (DC) Add. Discharge Instructions: All discharge instructions reviewed with patient and/or family. Voiced understanding. You need to call Dr. Chin's office today for appointment. Let them know that the case was discussed with Dr. Chin and he would like to see you this week. Follow up with [facility] for recheck and further evaluation as well. Ret urn for worse pain, fever, vomiting, weakness, breathing problems or other concerns as needed. Call [facility] and asked for transfer of your care to the [facility] and they should be able to get that accomplished for you. Copy Copies To 1: ALYSSIA BUTTS TIMOTHY D MD May 20, 2020 11:15
[2020-05-20 11:20] LABS: ALBUMIN 4.1 GM/DL (3.2-4.5); CHLORIDE 110 MMOL/L (98-107); POTASSIUM 4.2 MMOL/L (3.6-5.0); SODIUM 143 MMOL/L (135-145)
[2020-05-20 11:21] LABS: CALCIUM 9.1 MG/DL (8.5-10.1)
[2020-05-20 11:22] LABS: GLUCOSE 94 MG/DL (70-105)
[2020-05-20 11:23] LABS: TOTAL PROTEIN 7.2 GM/DL (6.4-8.2)
[2020-05-20 11:24] LABS: BILIRUBIN,TOTAL 0.3 MG/DL (0.1-1.0); CARBON DIOXIDE 23 MMOL/L (21-32)
[2020-05-20 11:26] LABS: ALKALINE PHOSPHATASE 64 U/L (40-136); CREATININE SERUM 0.84 MG/DL (0.60-1.30); GFR ESTIMATED > 60
[2020-05-20 11:27] LABS: BUN/CREATININE RATIO 11
[2020-05-20 11:29] LABS: ALANINE AMINOTRANSFERASE 13 U/L (0-55); MAGNESIUM 2.2 MG/DL (1.6-2.4)
[2020-05-20 11:38] LABS: FIBRIN DEGRADATION PRODUCTS <= 0.27 UG/ML (0.00-0.49); INR 0.9 (0.8-1.4); PARTIAL THROMBOPLASTIN TIME 31 SEC (24-35); PROTHROMBIN TIME PATIENT 12.7 SEC (12.2-14.7)
--- NOTE | 2020-05-20 12:11 | Diagnostic Imaging Report ---
Indication: Chest pain. Time of exam: 11:52 AM No prior studies are available for comparison. The heart size is normal. The pulmonary vascularity is unremarkable. The lungs are clear. No infiltrate, effusion or pneumothorax is detected. Impression: No acute cardiopulmonary process is detected. Dictated by: Dictated on workstation # [id number]
--- NOTE | 2020-05-20 12:35 | NUR ---
REPEAT TROPONIN DONE
[2020-05-20 13:53] VITALS: BP 125/73
== END 2020-05-20 13:53 | disposition home or self-care (01) ==
LOC: EDUNIT# 10:24 → ER 10:26
DX: R07.89 Other chest pain (principal); I10 Essential (primary) hypertension; E78.00 Pure hypercholesterolemia, unspecified; F17.210 Nicotine dependence, cigarettes, uncomplicated; Z82.49 Family history of ischemic heart disease and other diseases of the circulatory system
CPT/HCPCS: 36415; 71045; 80053; 83615; 83735; 83874; 84145; 84484; 85025; 85379; 85610; 85652; 85730; 86141; 93005; 93041

== ENCOUNTER → 2020-05-28 | Outpatient (CLI) | payer BC, OTHER | LOC: CARD 09:35 | PROVIDERS: ATTEND Internal Medicine Cardiovascular Disease | DX: I10 Essential (primary) hypertension (principal); E78.5 Hyperlipidemia, unspecified; R07.89 Other chest pain; Z72.0 Tobacco use | CPT/HCPCS: 93306 ==

== ENCOUNTER → 2020-05-29 | Outpatient (CLI) | payer BC, OTHER ==
[~2020-05-29] VITALS: Ht 157 cm; Wt 63.0 kg
[~2020-05-29] MED LIST changes: +CATHETER FLUSH 10 ML SYR IV PRN; +REGADENOSON 0.4 MG/5 ML SYR (LEXISCAN) IV ONE
[2020-05-29 08:49] VITALS: BP 134/82
--- NOTE | 2020-06-01 20:28 | STRESS TEST ---
DATE OF SERVICE: 05/29/2020 RESTING AND POST REGADENOSON TECHNETIUM-99M TETROFOSMIN SPECT CT IMAGING ORDERING PHYSICIAN: Dr. Chin. CLINICAL DIAGNOSES: Chest discomfort, hypertension, hyperlipidemia. Baseline images were carried out after injection of 10.36 mCi of technetium-99m Tetrofosmin. This was followed by 0.4 mg regadenoson and 31 mCi of technetium-99m Tetrofosmin for stress imaging. The electrocardiogram showed sinus rhythm at baseline. It did not change significantly with regadenoson infusion. The patient tolerated the procedure well. Review of images at rest and following stress does not indicate any significant perfusion defects consistent with myocardial ischemia or infarction. Gated images show normal global left ventricular systolic function with normal regional wall motion. Left ventricular ejection fraction is calculated to be 61%. CONCLUSIONS: 1. No evidence of any significant myocardial ischemia or infarction on this study. 2. Normal regional wall motion. 3. Normal global left ventricular systolic function with a calculated ejection fraction of 61%. Job ID: [id number] DocumentID: [id number] Dictated Date: 06/01/2020 16:08:19 Payment Processor Date: 06/01/2020 20:27:40 Dictated By: REZA CHIN MD, MA, FACP, FACC,
== END ==
LOC: CARD 07:03
PROVIDERS: ATTEND Internal Medicine Cardiovascular Disease
DX: R07.89 Other chest pain (principal); I10 Essential (primary) hypertension; E78.5 Hyperlipidemia, unspecified; Z72.0 Tobacco use
CPT/HCPCS: 78452; 93017; A9502